=== PATIENT | female | born 1955 | race Caucasian/White ===

== ENCOUNTER 2020-06-18 13:45 | Outpatient (CLI) | payer OTHER, SELFPAY | END 2020-06-18 13:46 | disposition home or self-care (01) | LOC: ANHCOVIDVC 13:45 | PROVIDERS: PCP Family Medicine | DX: Z23 Encounter for immunization (principal) | CPT/HCPCS: 0001A; 91300 ==

== ENCOUNTER 2020-07-09 13:41 | Outpatient (CLI) | payer OTHER, SELFPAY | END 2020-07-09 13:42 | disposition home or self-care (01) | LOC: ANHCOVIDVC 13:41 | PROVIDERS: PCP Family Medicine | DX: Z23 Encounter for immunization (principal) | CPT/HCPCS: 0002A; 91300 ==

== ENCOUNTER 2021-01-22 16:45 | Emergency (ER) | payer BC, SELFPAY ==
--- NOTE | 2021-01-22 16:49 | ED.FEMALEGU ---
HPI - Female Genitourinary General Chief complaint: Urogenital-Female Stated complaint: UTI SYMPTOMS Time Seen by Provider: 01/22/21 17:20 Source: patient and RN notes reviewed Mode of arrival: ambulatory Limitations: no limitations History of Present Illness HPI Narrative: 65-year-old female presents with concern for urinary tract infection. She reports symptoms started yesterday with urinary urgency, frequency, slow urine stream. She denies abdominal pain, vomiting, nausea, back pain, fever. MD elicited complaint: UTI Related Data Allergies Allergy/AdvReac Type Severity Reaction Status Date / Time No Known Allergies Allergy Mild Verified 01/22/21 16:58 Review of Systems Review of Systems: CONSTITUTIONAL: Denies malaise, chills, sweats, or fever. CARDIOVASCULAR: Denies chest pain, palpitations, or edema. RESPIRATORY: Denies cough or dyspnea. GASTROINTESTINAL: Denies abdominal pain, nausea, vomiting, diarrhea GENITOURINARY: Reports dysuria, frequency, urgency, suprapubic pressure. Denies flank pain or hematuria. SKIN: Denies rash or itching. MUSCULOSKELETAL: Denies back pain or myalgia. All systems reviewed & are unremarkable except as noted in HPI and below PMFSH Past Medical History Medical History Cavernous hemangioma History of mitral valve prolapse Multiple sclerosis SVT (supraventricular tachycardia) Syncopal episodes Urinary incontinence Family History Family History Father Macula lutea degeneration Asthma Mother Macula lutea degeneration Cataract Social History Social History Smoking status: Former smoker (Quit 2.5 years ago) Second hand tobacco smoke exposure: No Alcohol use details: 1 glass of wine weekly. Substance use: never Substance use type: does not use Gender identity (if verbalized by the patient): Female Comments At time of signature, agree with nursing past medical, surgical, social and family history. There is no relevant family history pertinent to the presenting complaint Exam Narrative: GENERAL: Well-appearing, well-nourished, and in no acute distress. HEAD: Normocephalic. EYES: PERRLA, conjunctivae clear. NECK: Supple. No lymphadenopathy CHEST: Clear to auscultation. No respiratory distress. HEART: Regular rate and rhythm. ABDOMEN: Soft, nontender upon palpation, nondistended, normal active bowel sounds, no palpable or pulsatile masses, no guarding. No CVA tenderness SKIN: Warm, dry, no rash. NEURO: Alert and oriented x3. PSYCH: Normal mood and affect Course Course Emergency Course: Patient left in the urine for urinalysis, able to leave more urine for a culture. Patient understands that without a culture were unable to determine efficacy of antibiotics. She understands and will return to primary care doctor if her symptoms do not improve. Patient is aware of diagnosis, understands and agrees to treatment plan. Anticipatory guidance given. Patient agrees to follow-up as directed and is aware of reasons to seek care at the emergency department. Portions of this record may have been created with voice recognition software Vital Signs Vital signs: Reviewed. MDM - Female Genitourinary MDM Narrative Medical decision making narrative: Exam findings and UA show no acute concerns or changes; patient is non-toxic appearing and is in no distress. Patient is appropriate for outpatient treatment and follow-up. Lab Data Attestation: I reviewed the patient's lab results. Critical Care Time Critical Care Time Critical Care Time: No Discharge Plan Discharge Clinical Impression: Urinary tract infection Qualifiers: Urinary tract infection type: site unspecified Hematuria presence: with hematuria Qualified Code(s): N39.0 - Urinary tract infection, site not specified Patient Disposition: Home,
[2021-01-22 16:58] VITALS: BP 116/80; PULSE 93; RESP 16; TEMP 36.3; O2SAT 99
== END 2021-01-22 18:10 | disposition home or self-care (01) ==
PROVIDERS: Emergency Provider Nurse Practitioner; PCP Family Medicine
DX: N39.0 Urinary tract infection, site not specified (principal); I34.1 Nonrheumatic mitral (valve) prolapse; G35 Multiple sclerosis; Z87.891 Personal history of nicotine dependence
CPT/HCPCS: 81003; 87086; 99213; G0463

== ENCOUNTER 2021-02-10 10:23 | Emergency (ER) | payer BC, SELFPAY ==
[2021-02-10 10:26] VITALS: BP 115/81; PULSE 106; RESP 16; TEMP 36.3; O2SAT 99
--- NOTE | 2021-02-10 10:26 | ED.FEMALEGU ---
HPI - Female Genitourinary General Chief complaint: Urogenital-Female Stated complaint: UTI SYMPTOMS Time Seen by Provider: 02/10/21 10:26 Source: patient and RN notes reviewed History of Present Illness HPI Narrative: Patient is a 65-year-old female who presents the urgent care with complaints of dysuria, urinary frequency and urgency. Patient states that she was seen at our facility 2 weeks ago and placed on Bactrim for UTI. At that time patient was unable to produce enough urine for a culture. Patient states that symptoms then returned again last night. States that she did call her provider and they were unable to get her in to the office to be seen today. Patient denies of any fever, nausea, vomiting, abdominal pain, low back pain or hematuria. Patient has not taken anything for her symptoms. No other acute complaints. No acute distress noted. Patient aware of the plan of care. Some parts of this dictation were generated by voice recognition software and may contain typographical and/or grammatical inaccuracies. Related Data Allergies Allergy/AdvReac Type Severity Reaction Status Date / Time No Known Allergies Allergy Mild Verified 01/22/21 16:58 Review of Systems Review of Systems: CONSTITUTIONAL: Denies fever, chills, or sweats. EYES: Denies visual changes, redness, or discharge. ENT: Denies rhinorrhea, congestion, sore throat, or otalgia. CARDIOVASCULAR: Denies chest pain, palpitations, or edema. RESPIRATORY: Denies cough or dyspnea. GASTROINTESTINAL: Denies abdominal pain, nausea, vomiting, or diarrhea. GENITOURINARY: Reports of urgency, frequency and dysuria without hematuria SKIN: Denies rash or itching. MUSCULOSKELETAL: Denies back pain, joint pain, or myalgia. NEUROLOGIC: Denies headache, numbness, or weakness. All other systems reviewed are negative, except as documented in HPI. [facility] Past Medical History Medical History Cavernous hemangioma History of mitral valve prolapse Multiple sclerosis SVT (supraventricular tachycardia) Syncopal episodes Urinary incontinence Family History Family History Father Macula lutea degeneration Asthma Mother Macula lutea degeneration Cataract Social History Social History Smoking status: Former smoker (Quit 2.5 years ago) Second hand tobacco smoke exposure: No Alcohol use details: 1 glass of wine weekly. Substance use: never Substance use type: does not use Gender identity (if verbalized by the patient): Female Comments At the time of my signature, I reviewed and agree with the nursing past medical, surgical, social, and family history. There is no relevant family history pertinent to the patient complaint. Exam Narrative: GENERAL: This is a well-nourished, well-developed patient, in no apparent distress. HEAD: normocephalic, atraumatic. EYES: PERRL. Sclera clear/white. Vision is grossly intact. EARS: External ears normal NOSE: External nose normal with no obvious nasal discharge, nares without redness, no rhinorrhea. THROAT: Mucous membranes moist NECK: Neck supple CARDIOVASCULAR: Regular rate and rhythm without murmurs, gallops, or rubs. RESPIRATORY: Clear to auscultation. Breath sounds equal bilaterally. No wheezes, rales, or rhonchi. GASTROINTESTINAL: Abdomen soft, non-tender, nondistended. Bowel sounds are active. SKIN: warm, intact with no suspicious lesions or rash, good texture and turgor. NEURO: awake, alert, and oriented to person, place and time. There were no obvious focal neurologic abnormalities. EXTREMITIES: No clubbing, cyanosis, or edema. BACK: Negative CVA tenderness Course Vital Signs Vital signs: Vital Signs Temperature 97.3 F L 02/10/21 10:26 Pulse Rate 106 H 02/10/21 10:26 Respiratory Rate 16 02/10/21 10:26 Blood Pressure 115/81 02/10/21 10
== END 2021-02-10 10:56 | disposition home or self-care (01) ==
PROVIDERS: Emergency Provider Nurse Practitioner Family; PCP Family Medicine
DX: N39.0 Urinary tract infection, site not specified (principal); I34.1 Nonrheumatic mitral (valve) prolapse; G35 Multiple sclerosis; Z87.891 Personal history of nicotine dependence
CPT/HCPCS: 81003; 87077; 87086; 87088; 87186; 99213; G0463

== ENCOUNTER 2021-11-07 08:17 | Emergency (ER) | payer BC, SELFPAY ==
[2021-11-07 08:22] VITALS: BP 122/90; PULSE 95; RESP 16; TEMP 36.9; O2SAT 98
--- NOTE | 2021-11-07 08:36 | ED.FEMALEGU ---
HPI - Female Genitourinary General Chief complaint: Urogenital-Female Stated complaint: UTI SYMPTOMS Time Seen by Provider: 11/07/21 08:55 Source: patient and RN notes reviewed Mode of arrival: ambulatory Limitations: no limitations History of Present Illness HPI Narrative: 66-year-old female presents to concern for possible urinary tract infection. She reports overnight she began having urine frequency, burning, urgency. Reports when she urinated she did not have a large amount of urine. She denies back pain, abdominal pain, fever, body aches, chills, sweats, nausea, vomiting. MD elicited complaint: UTI Related Data Allergies Allergy/AdvReac Type Severity Reaction Status Date / Time No Known Allergies Allergy Mild Verified 08/12/21 16:17 Review of Systems Review of Systems: CONSTITUTIONAL: Denies malaise, chills, sweats, or fever. CARDIOVASCULAR: Denies chest pain, palpitations, or edema. RESPIRATORY: Denies cough or dyspnea. GASTROINTESTINAL: Denies abdominal pain, nausea, vomiting, diarrhea GENITOURINARY: Reports dysuria, frequency, urgency. Denies suprapubic pressure. Denies flank pain or hematuria. SKIN: Denies rash or itching. MUSCULOSKELETAL: Denies back pain or myalgia. All systems reviewed & are unremarkable except as noted in HPI and below PMFSH Past Medical History Medical History (Updated 11/07/21 @ 09:01 by Connie Vitale NP) Cavernous hemangioma Chronic renal insufficiency, stage III (moderate) History of mitral valve prolapse Multiple sclerosis MVP (mitral valve prolapse) Prediabetes Rosacea SVT (supraventricular tachycardia) Syncopal episodes Urinary incontinence Family History Family History Father Macula lutea degeneration Asthma Mother Macula lutea degeneration Cataract Social History Social History Second hand tobacco smoke exposure: No Smoking end date: 02/09/18 Alcohol intake: current Alcohol use details: 1 glass of wine weekly. Substance use: never Substance use type: does not use Gender identity (if verbalized by the patient): Female Comments At time of signature, agree with nursing past medical, surgical, social and family history. There is no relevant family history pertinent to the presenting complaint Exam Narrative: GENERAL: Well-appearing, well-nourished, and in no acute distress. HEAD: Normocephalic. EYES: PERRLA, conjunctivae clear. NECK: Supple. No lymphadenopathy CHEST: Clear to auscultation. No respiratory distress. HEART: Regular rate and rhythm. ABDOMEN: Soft, nontender upon palpation, nondistended, normal active bowel sounds, no palpable or pulsatile masses, no guarding. No CVA tenderness SKIN: Warm, dry, no rash. NEURO: Alert and oriented x3. PSYCH: Normal mood and affect Course Course Emergency Course: Patient is aware of diagnosis, understands and agrees to treatment plan. Anticipatory guidance given. Patient agrees to follow-up as directed and is aware of reasons to seek care at the emergency department. Portions of this record may have been created with voice recognition software Level of Care: Express Care Visit Vital Signs Vital signs: Vital Signs Temperature 98.4 F 11/07/21 08:22 Pulse Rate 95 11/07/21 08:22 Respiratory Rate 16 11/07/21 08:22 Blood Pressure 122/90 11/07/21 08:22 Pulse Oximetry 98 11/07/21 08:22 Oxygen Delivery Room Air 11/07/21 08:22 Temperature 98.4 F 11/07/21 08:22 Pulse Rate 95 11/07/21 08:22 Respiratory Rate 16 11/07/21 08:22 Blood Pressure 122/90 11/07/21 08:22 Pulse Oximetry 98 11/07/21 08:22 Oxygen Delivery Room Air 11/07/21 08:22 Reviewed. MDM - Female Genitourinary MDM Narrative Medical decision making narrative: Exam findings and UA show no acute concerns or changes; patient is non-toxic appearing and is in no distress. Patient is
== END 2021-11-07 09:08 | disposition home or self-care (01) ==
PROVIDERS: Emergency Provider Nurse Practitioner; PCP Family Medicine
DX: N39.0 Urinary tract infection, site not specified (principal); Z87.891 Personal history of nicotine dependence; I34.1 Nonrheumatic mitral (valve) prolapse; G35 Multiple sclerosis; R73.03 Prediabetes
CPT/HCPCS: 81003; 87077; 87086; 87186; 99213; G0463

== ENCOUNTER 2022-08-29 14:28 | Emergency (ER) | payer OTHER, SELFPAY ==
--- NOTE | 2022-08-29 14:30 | ED.FEMALEGU ---
HPI - Female Genitourinary General Chief complaint: Urogenital-Female Stated complaint: UTI SYMPTOMS Time Seen by Provider: 08/29/22 14:30 Source: patient and RN notes reviewed History of Present Illness HPI Narrative: Patient is a 66-year-old female presents to urgent care with complaints of possible UTI due to burning with urination suprapubic pressure. Patient denies any fever, nausea vomiting or abdominal pain. Patient states that she has not had a UTI for at least 1 year. Patient also reports of urinary urgency. No other acute complaints. No acute distress noted. Patient aware of the plan of care. Patient states symptoms started yesterday and she has not taken anything for her symptoms. Some parts of this dictation were generated by voice recognition software and may contain typographical and/or grammatical inaccuracies. Related Data Allergies Allergy/AdvReac Type Severity Reaction Status Date / Time No Known Allergies Allergy Mild Verified 08/29/22 14:34 Review of Systems Review of Systems: CONSTITUTIONAL: Denies fever, chills, or sweats. EYES: Denies visual changes, redness, or discharge. ENT: Denies rhinorrhea, congestion, sore throat, or otalgia. CARDIOVASCULAR: Denies chest pain, palpitations, or edema. RESPIRATORY: Denies cough or dyspnea. GASTROINTESTINAL: Denies abdominal pain, nausea, vomiting, or diarrhea. GENITOURINARY: Reports of dysuria suprapubic pressure SKIN: Denies rash or itching. MUSCULOSKELETAL: Denies back pain, joint pain, or myalgia. NEUROLOGIC: Denies headache, numbness, or weakness. All other systems reviewed are negative, except as documented in HPI. [facility] Past Medical History Medical History Cavernous hemangioma Chronic renal insufficiency, stage III (moderate) History of mitral valve prolapse Multiple sclerosis MVP (mitral valve prolapse) Prediabetes Rosacea SVT (supraventricular tachycardia) Syncopal episodes Urinary incontinence Family History Family History Father Macula lutea degeneration Asthma Mother Macula lutea degeneration Cataract Dementia Social History Social History Smoking status: Former smoker (1ppd since 16 yo until 62 but 0.5 ppd mostly) Second hand tobacco smoke exposure: No Smoking end date: 02/09/18 Alcohol intake: current Alcohol use details: 1 glass of wine weekly. Substance use: never Substance use type: does not use Lack of Transportation: No Lack of Food: Never True Current Housing: I Have Housing Concerned About Future Housing: No Difficulty Paying Gas/Electric Bills: No Difficulty Paying for Meds: No Currently Unemployed: No Education: High School Diploma/GED Difficulty w/ Childcare or Family Care: No Living arrangements: with family Occupation/Education: occupation Gender identity (if verbalized by the patient): Female Comments At the time of my signature, I reviewed and agree with the nursing past medical, surgical, social, and family history. There is no relevant family history pertinent to the patient complaint. Exam Narrative: GENERAL: This is a well-nourished, well-developed patient, in no apparent distress. HEAD: normocephalic, atraumatic. EYES: PERRL. Sclera clear/white. Vision is grossly intact. EARS: External ears normal, NOSE: External nose normal with no obvious nasal discharge, nares without redness, no rhinorrhea. THROAT: Mucous membranes moist NECK: Neck supple, GASTROINTESTINAL: Abdomen soft, moderate suprapubic tenderness on palpation, nondistended. Bowel sounds are active. SKIN: warm, intact with no suspicious lesions or rash, good texture and turgor. NEURO: awake, alert, and oriented to person, place and time. There were no obvious focal neurologic abnormalities. EXTREMITIES: No clubbing, cyanosis, or
[2022-08-29 14:37] VITALS: BP 111/85; PULSE 99; RESP 16; TEMP 36.2; O2SAT 99
== END 2022-08-29 15:03 | disposition home or self-care (01) ==
PROVIDERS: Emergency Provider Nurse Practitioner Family; PCP Family Medicine
DX: N39.0 Urinary tract infection, site not specified (principal); I34.1 Nonrheumatic mitral (valve) prolapse; G35 Multiple sclerosis; R73.03 Prediabetes; Z87.891 Personal history of nicotine dependence; N18.30 Chronic kidney disease, stage 3 unspecified
CPT/HCPCS: 81003; 87086; 87088; 99213; G0463

== ENCOUNTER 2022-11-07 12:21 | Emergency (ER) | payer OTHER, SELFPAY ==
--- NOTE | 2022-11-07 12:29 | ED.DIZZY ---
HPI - Dizziness General Chief Complaint: Dizziness Stated Complaint: dizzy Source: patient, family and RN notes reviewed History of Present Illness HPI Narrative: 67-year-old female presents to urgent care with at side. Patient states she had vomiting and diarrhea approximately 24 hours on where she could keep nothing down. patient states she has been dizzy ever since. The patient is also reporting left visual disturbance that started at the same time. Patient denies a fevers shortness chest pain, palpitations, shortness of breath headaches, extremity weakness falls, numbness, or tingling. Related Data Allergies Allergy/AdvReac Type Severity Reaction Status Date / Time No Known Allergies Allergy Mild Verified 11/07/22 12:46 Review of Systems Review of Systems: CONSTITUTIONAL: Denies fever, chills, or sweats. EYES: left visual disturbance ENT: Denies otalgia and sore throat CARDIOVASCULAR: Denies chest pain, palpitations, or edema. RESPIRATORY: Denies cough or dyspnea. GASTROINTESTINAL: Denies abdominal pain, nausea, vomiting, or diarrhea. GENITOURINARY: Denies dysuria or hematuria. SKIN: Denies rash or itching. MUSCULOSKELETAL: Denies back pain, joint pain, or myalgia. NEUROLOGIC: dizziness Pertinent positives per HPI. [facility] Past Medical History Medical History Cavernous hemangioma Chronic renal insufficiency, stage III (moderate) History of mitral valve prolapse Multiple sclerosis MVP (mitral valve prolapse) Prediabetes Rosacea SVT (supraventricular tachycardia) Syncopal episodes Urinary incontinence Family History Family History Father Macula lutea degeneration Asthma Mother Macula lutea degeneration Cataract Dementia Social History Social History Smoking status: Former smoker (1ppd since 16 yo until 62 but 0.5 ppd mostly) Second hand tobacco smoke exposure: No Smoking end date: 02/09/18 Alcohol intake: current Alcohol use details: 1 glass of wine weekly. Substance use: never Substance use type: does not use Lack of Transportation: No Lack of Food: Never True Current Housing: I Have Housing Concerned About Future Housing: No Difficulty Paying Gas/Electric Bills: No Difficulty Paying for Meds: No Currently Unemployed: No Education: High School Diploma/GED Difficulty w/ Childcare or Family Care: No Living arrangements: with family Occupation/Education: occupation Gender identity (if verbalized by the patient): Female Comments At the time of my signature, I reviewed and agree with the nursing past medical, surgical, social, and family history. There is no relevant family history pertinent to the patient complaint. Exam Narrative: GENERAL: This is a well-nourished, well-developed patient, in no apparent distress. HEAD: normocephalic, atraumatic. EYES: left visual disturbance EARS: External ears normal, auditory canals clear and without drainage. Hearing grossly intact. NOSE: External nose normal with no obvious nasal discharge, nares without redness, no rhinorrhea. THROAT: Mucous membranes moist, posterior pharynx clear. NECK: Neck supple, non-tender without lymphadenopathy, masses or thyromegaly. CARDIOVASCULAR: tachycardia RESPIRATORY: Clear to auscultation. Breath sounds equal bilaterally. No wheezes, rales, or rhonchi. GASTROINTESTINAL: Abdomen soft, non-tender, nondistended. Bowel sounds are active. No hepato-splenomegaly, or palpable masses. No guarding. SKIN: warm, intact with no suspicious lesions or rash, good texture and turgor. NEURO: awake, alert, and oriented to person, place and time. 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 + for ataxic gait. EXTREMITIES: No clubbing, cyanosis, or edema. No joint tenderness, effusion, or maggie
[2022-11-07 12:32] VITALS: BP 93/77; PULSE 123; RESP 16; TEMP 36.6; O2SAT 98
[2022-11-07 12:46] LABS: Glucose Point of Care 156 mg/dl (65-105)
--- NOTE | 2022-11-07 12:46 | ECG_ITS ---
Rate MN QRSd QT QTc P QRS T Severity 122 0 87 289 413 -17 -26 Abnormal ECG ATRIAL FIBRILLATION WITH RAPID VENTRICULAR RESPONSE LOW QRS VOLTAGE IN PRECORDIAL LEADS BORDERLINE T WAVE ABNORMALITY- DIFFUSE LEADS ABNORMAL ECG NO PREVIOUS ECG AVAILABLE FOR COMPARISON Electronically Signed On 11-08-2022 8:54:24 CDT by Dre PARKS
--- NOTE | 2022-11-07 13:06 | PC.NURSE ---
1240 Patient ambulated from triage to procedure room-patient reports severe dizziness, holding onto handrail, ataxic gait noted.
== END 2022-11-07 13:10 | disposition short-term general hospital (02) ==
PROVIDERS: Emergency Provider Nurse Practitioner Family; PCP Family Medicine
DX: E86.0 Dehydration (principal); N18.30 Chronic kidney disease, stage 3 unspecified; Z87.891 Personal history of nicotine dependence; I34.1 Nonrheumatic mitral (valve) prolapse; G35 Multiple sclerosis; R73.03 Prediabetes
CPT/HCPCS: 82948; 93005; 99215; G0463

== ENCOUNTER 2022-11-07 13:46 | Emergency (ER) | payer OTHER, SELFPAY ==
[2022-11-07] VITALS (30 sets, daily range): BP systolic 54–153; BP diastolic 38–118; PULSE 79–136; RESP 13–28; TEMP 36.2; O2SAT 94–100
--- NOTE | 2022-11-07 | ECG_ITS ---
Measurements Intervals [place] Rate: 109 P: IL: 0 QRS: -24 QRSD: 88 T: 3 QT: 344 QTc: 465 Interpretive Statements ATRIAL FIBRILLATION WITH RAPID VENTRICULAR RESPONSE DELAYED PRECORDIAL R/S TRANSITION LOW QRS VOLTAGE IN PRECORDIAL LEADS BORDERLINE T WAVE ABNORMALITY- ANTERIOR LEADS BASELINE ARTIFACT- I, AVR, AVL ABNORMAL ECG COMPARED TO ECG 11/07/2022 13:51:58 NO SIGNIFICANT CHANGES Electronically Signed On 11-08-2022 8:55:44 CDT by Dre Cordero D.O.
--- NOTE | ~2022-11-07 | XR_ITS ---
EXAMINATION: XR chest 2V Exam Date/Time: 11/07/2022 14:20 CDT HISTORY: New onset Afib, DIZZY Comparison: None. RESULT: Lines, tubes, and devices: None. Lungs and pleura: Clear. Cardiomediastinal silhouette: Aortic arch calcifications. Prominent pericardial fat pad. Other: No acute osseous or upper abdominal finding. IMPRESSION: No acute cardiopulmonary process. Reviewed, dictated and finalized at location K.
--- NOTE | 2022-11-07 14:06 | ED.ARRPALP ---
HPI - Arrhythmia/Palpitations General Chief Complaint: Arrhythmia/Palpitations Stated Complaint: irregular heart beat Time Seen by Provider: 11/07/22 13:47 History of Present Illness HPI narrative: This is a 67-year-old female, with past history of mitral valve prolapse, presents to the emergency department as a referral from urgent care for palpitations. The patient states 4 days ago, she had multiple episodes of nonbloody vomiting and diarrhea that resolved after that day. During that time she also had intermittent palpitations and lightheadedness with some vertigo. Despite the nausea and vomiting resolving, she continued to have lightheadedness. She denies chest pain, loss of consciousness, weakness/numbness or other complaints. Related Data Allergies Allergy/AdvReac Type Severity Reaction Status Date / Time No Known Allergies Allergy Mild Verified 11/07/22 12:46 Review of Systems Review of Systems: CONSTITUTIONAL: Denies fever, chills, or sweats. CARDIOVASCULAR: Palpitations denies chest pain, or edema. RESPIRATORY: Denies cough or dyspnea. GASTROINTESTINAL: Nausea, vomiting and diarrhea resolved denies abdominal pain GENITOURINARY: Denies dysuria or hematuria. SKIN: Denies rash or itching. MUSCULOSKELETAL: Denies back pain, joint pain, or myalgia. NEUROLOGIC: Denies headache, numbness, dizziness, or weakness. PSYCHIATRIC: Denies anxiety or depression. [facility] Past Medical History Medical History Cavernous hemangioma Chronic renal insufficiency, stage III (moderate) History of mitral valve prolapse Multiple sclerosis MVP (mitral valve prolapse) Prediabetes Rosacea SVT (supraventricular tachycardia) Syncopal episodes Urinary incontinence Family History Family History Father Macula lutea degeneration Asthma Mother Macula lutea degeneration Cataract Dementia Social History Social History Smoking status: Former smoker (1ppd since 16 yo until 62 but 0.5 ppd mostly) Second hand tobacco smoke exposure: No Smoking end date: 02/09/18 Alcohol intake: current Alcohol use details: 1 glass of wine weekly. Substance use: never Substance use type: does not use Lack of Transportation: No Lack of Food: Never True Current Housing: I Have Housing Concerned About Future Housing: No Difficulty Paying Gas/Electric Bills: No Difficulty Paying for Meds: No Currently Unemployed: No Education: High School Diploma/GED Difficulty w/ Childcare or Family Care: No Living arrangements: with family Occupation/Education: occupation Gender identity (if verbalized by the patient): Female Exam Narrative: GENERAL: Well-developed, well-nourished, and in no acute distress. HEAD: Normocephalic, atraumatic. EYES: PERRLA and EOMI. ENT: Nares clear, no rhinorrhea or epistaxis. Mucous membranes moist. NECK: Supple. No adenopathy or masses. No JVD CHEST: Clear to auscultation. No respiratory distress. No wheezes rales or rhonchi HEART: Irregularly irregular rhythm. No murmur heard. Normal peripheral pulses. ABDOMEN: Soft, nontender, nondistended, normal active bowel sounds. EXTREMITIES: Normal range of motion. No edema. SKIN: Warm, dry, no rash. NEURO: No focal deficits. Alert and oriented x3. PSYCH: Normal mood and affect. Course Course Emergency Course: 15:50 - Heart rate improved to the mid 90s with IV fluids, IV metoprolol and p.o. metoprolol. Blood pressure remains in the 130s systolic. Chest x-ray unremarkable. CBC demonstrates elevated hemoglobin of 16.8 with otherwise unremarkable CBC. Chemistry is unremarkable. Magnesium 2. Patient's [id number] score of 2. HAS-BLED score of 1. I discussed the risks versus benefits of anticoagulation and outpatient primary care and cardiology follow-up with the
[2022-11-07 14:39] LABS: Basophils Absolute Auto 0.1 K/mm3 (0.0-0.1); Basophils Percent Auto 0.6 % (0.2-1.2); Eosinophils Percent Auto 0.4 % (0-4.4); Hematocrit 51.1 % (37.0-47.0); Hemoglobin 16.8 g/dL (12.0-15.0); Immature Granulocyte Absolute 0.04 K/mm3 (0.00-0.031); Immature Granulocyte Percent A 0.5 % (0-0.5); Lymphocytes Absolute Auto 1.63 K/mm3 (0.9-3.2); Lymphocytes Percent Auto 19.3 % (18.3-44.2); Mean Corpuscular HGB Conc 32.9 g/dl (32-36); Mean Corpuscular Hemoglobin 27.9 pg (26-34); Mean Corpuscular Volume 84.9 fl (80-100); Mean Platelet Volume 11.6 fl (7.4-10.4); Monocytes Absolute Auto 0.5 K/mm3 (0.1-0.6); Monocytes Percent Auto 6.2 % (2.6-8.5); Neutrophils Absolute Auto 6.2 K/mm3 (1.3-6.7); Platelet Count Result 208 k/mm3 (150-375); Red Blood Count 6.02 M/mm3 (4.2-5.4); Red Cell Distribution Width 14.2 % (11.5-14.5); White Blood Count 8.4 K/mm3 (4.5-10.0)
[2022-11-07 14:49] LABS: Prothrombin Time 13.4 Seconds (11.1-14.7)
[2022-11-07 14:53] LABS: Alanine Aminotransferase 24 U/L (6-35); Albumin Level 4.1 g/dL (3.5-5.1); Alkaline Phosphatase 79 U/L (38-126); Anion Gap 8 mmol/L (8-16); Aspartate Amino Transferase 29 U/L (14-36); Bilirubin,Total 1.5 mg/dL (0.2-1.3); Blood Urea Nitrogen 17 mg/dL (7-17); Calcium 9.5 mg/dL (8.4-10.2); Carbon Dioxide 28 mmol/L (22-30); Chloride 105 mmol/L (98-107); Estimated CRCL calculation 75 ml/min; Estimated Glomerular Filt Rate > 60; Glucose 105 mg/dL (65-110); Potassium 3.7 mmol/L (3.4-5.0); Sodium 141 mmol/L (137-145)
[2022-11-07] MEDS: METOPROLOL TARTRATE INJ 5 MG/5 ML VIAL IV PUSH (14:55)
[2022-11-07] MEDS: SODIUM CHLORIDE 0.9% IV 2,000 ML 999 ML IV CONT (14:55)
[2022-11-07 15:05] LABS: Troponin I < 0.012 ng/mL (0.000-0.034)
--- NOTE | 2022-11-07 15:43 | ECG_ITS ---
Rate 114 MD 0 QRSd 83 QT 321 QTc 443 --Bromide-- P QRS -22 T -16 ATRIAL FIBRILLATION WITH RAPID VENTRICULAR RESPONSE LOW QRS VOLTAGE IN PRECORDIAL LEADS BORDERLINE ST-T WAVE ABNORMALITY- ANT/INF LEADS BASELINE ARTIFACT- I, II, III, AVR, AVL, AVF ABNORMAL ECG Electronically Signed On 11-08-2022 0:09:23 CDT by Dre Cordero D.O. COMPARED TO ECG 11/07/2022 12:41:23 NO SIGNIFICANT CHANGES MTDD
[2022-11-07] MEDS: METOPROLOL TARTRATE 25 MG TABLET PO (16:43)
--- NOTE | 2022-11-07 16:54 | PC.NURSE ---
pt ambulatory with assistance to bathroom. pt states vertigo is improved. pt veering left when walking. states at home she had to physically hold on to wall to walk.
[2022-11-07] MEDS: SODIUM CHLORIDE 0.9% IV 1,000 ML 999 ML IV CONT (17:02)
[2022-11-07] MEDS: APIXABAN 5 MG TABLET PO (17:02)
== END 2022-11-07 17:45 | disposition home or self-care (01) ==
PROVIDERS: Emergency Provider Preventive Medicine Aerospace Medicine; PCP Family Medicine
DX: I48.91 Unspecified atrial fibrillation (principal); I34.1 Nonrheumatic mitral (valve) prolapse; N18.30 Chronic kidney disease, stage 3 unspecified; G35 Multiple sclerosis; R73.03 Prediabetes; R32 Unspecified urinary incontinence; Z87.891 Personal history of nicotine dependence; R94.31 Abnormal electrocardiogram [ECG] [EKG]
CPT/HCPCS: 36415; 71046; 80053; 82948; 83735; 84443; 84484; 85025; 85610; 93005; 96361; 96374; 99284; A9270; J7030

== ENCOUNTER → 2022-11-15 13:15 | Outpatient (CLI) | payer OTHER, SELFPAY ==
--- NOTE | ~2022-11-15 | CT_ITS ---
EXAMINATION: CT brain wo con DATE: 11/15/2022 13:32 INDICATION: Dizziness and giddiness. TECHNIQUE: Computed tomography (CT) of the head was performed without intravenous contrast. The mA wa s adjusted according to patient size. Iterative reconstruction technique was employed. The dose-lengt h product was 599.57 mGy-cm. COMPARISON: None FINDINGS: There are scattered areas of low attenuation in the cerebral white matter. There is no intr acranial hemorrhage, acute infarction, or abnormal intracranial mass lesion. The ventricles are adolfo l in size. There is mild mucosal thickening in the paranasal sinuses. The mastoid air cells are adolfo l. The orbits are normal. IMPRESSION: 1. Moderate nonspecific cerebral white matter disease, which likely represents chronic small vessel i schemic disease. Reviewed, dictated and finalized at location A. IMPRESSION: 1. Moderate nonspecific cerebral white matter disease, which likely represents chronic small vessel ischemic disease.
== END ==
PROVIDERS: PCP Physician Assistant; Visit Provider Physician Assistant
DX: R42 Dizziness and giddiness (principal); R93.0 Abnormal findings on diagnostic imaging of skull and head, not elsewhere classified
CPT/HCPCS: 70450

== ENCOUNTER 2023-04-25 07:03 | Outpatient (CLI) | payer OTHER, SELFPAY ==
[2023-03-10 15:13] VITALS: BMI 32.0
[2023-04-22 12:29] VITALS: BMI 31.1
[2023-04-25] VITALS (12 sets, daily range): BP systolic 97–124; BP diastolic 67–90; PULSE 65–105; RESP 12–16; TEMP 35.9; O2SAT 95–100; BMI 31.2
--- NOTE | 2023-04-25 07:00 | ECG_ITS ---
Measurements Intervals [place] Rate: 65 P: 65 CA: 183 QRS: -18 QRSD: 90 T: 6 QT: 445 QTc: 463 Interpretive Statements SINUS RHYTHM BORDERLINE ST-T WAVE ABNORMALITY- ANT/INF LEADS BASELINE ARTIFACT- I, II, AVR BORDERLINE ECG COMPARED TO ECG 04/25/2023 07:42:18 SINUS RHYTHM NOW PRESENT Electronically Signed On 04-25-2023 9:34:56 [employer] by Dre Cordero D.O.
[2023-04-25 08:22] LABS: Potassium 3.9 mmol/L (3.4-5.0)
[2023-04-25 08:30] LABS: Anion Gap 8 mmol/L (8-16); Blood Urea Nitrogen 22 mg/dL (7-17); Calcium 9.1 mg/dL (8.4-10.2); Carbon Dioxide 24 mmol/L (22-30); Chloride 109 mmol/L (98-107); Estimated CRCL calculation 73 ml/min; Estimated Glomerular Filt Rate > 60; Glucose 102 mg/dL (65-110); Magnesium 2.2 mg/dL (1.6-2.3); Sodium 141 mmol/L (137-145)
--- NOTE | 2023-04-25 08:58 | PM.IMHP ---
H&P: HPI History of Present Illness Date/Time: 04/25/23 08:58 Chief Complaint: No complaints this morning Narrative: this is a 67-year-old patient admitted as an outpatient today for elective planned DC cardioversion of atrial fibrillation. The patient was seen in my office for follow-up of atrial fibrillation in February of 2023. She was seen initially in consultation in January of 2023 for atrial fibrillation. She was 1st told of this back in 2017 by her previous physician. She was treated with metoprolol and did well. She subsequently was treated for a diarrheal illness in the summer. At that time she was found to be in persistent atrial fibrillation but appeared to be asymptomatic and unaware of her arrhythmia. She was seen in consultation. She was anticoagulated at that time. Echocardiogram was done in February demonstrating normal or low normal left ventricular systolic function with an ejection fraction of 50% with moderate biatrial dilatation and modest mitral and tricuspid valve insufficiency. After being seen in the office after a suitable period of anticoagulation rate control versus rhythm control were discussed. It is her preference to attempt restoring sinus rhythm. She has been started on sotalol for anti arrhythmic benefit. She continues to be anticoagulated with apixaban Review of Systems Constitutional: Constitutional: Reports no additional constitutional complaints Eyes: Eyes: Reports no additional eye complaints ENT: Reports system reviewed and no additional complaints, except as documented Cardiovascular: Cardiovascular: Reports no additional cardiovascular complaints Respiratory: Respiratory: Reports no additional respiratory complaints Gastrointestinal: Gastrointestinal: Reports no additional gastrointestinal complaints Musculoskeletal: Musculoskeletal: Reports no additional musculoskeletal complaints Integumentary/Breasts: Skin/Breast: Reports system reviewed and no additional complaints, except as docu Neurologic: Reports system reviewed and no additional complaints, except as documented [facility] Past Medical History Medical History (Updated 11/11/22 @ 14:44 by Annie Nova PA-C) Cavernous hemangioma Chronic renal insufficiency, stage III (moderate) History of mitral valve prolapse Multiple sclerosis MVP (mitral valve prolapse) Paroxysmal A-fib Prediabetes Rosacea SVT (supraventricular tachycardia) Syncopal episodes Urinary incontinence Family History Family History Father Macula lutea degeneration Asthma Mother Macula lutea degeneration Cataract Dementia Social History Social History (Updated 11/11/22 @ 13:21 by Ashley Khan MA) Smoking packs per day: 1 Smoking cigarettes per day: 20.0 Smoking status: Former smoker Tobacco type: cigarettes Second hand tobacco smoke exposure: No Smoking end date: 02/09/18 Additional smoking assessment comments: 1 ppd since 16 yo until 62 but 0.5 ppd mostly Alcohol intake: current Alcohol use details: approximately once every 2 weeks Substance use: never Substance use type: does not use Last use: 02/09/2018 Lack of Transportation: No Lack of Food: Never True Current Housing: I Have Housing Concerned About Future Housing: No Difficulty Paying Gas/Electric Bills: No Difficulty Paying for Meds: No Currently Unemployed: No Education: High School Diploma/GED Difficulty w/ Childcare or Family Care: No Living arrangements: with family Occupation/Education: occupation Gender identity (if verbalized by the patient): Female Spiritual care concerns: No Agree to blood products: Yes Meds Home Medications and Allergies Home Medications Medication Instructions Recorded Confirmed Type apixaban 5 mg tablet (Eliquis) 5 mg PO BID #60 tabs 02/07/23 03/10/23 Rx sotalol 80 mg tablet 80 mg PO BID
--- NOTE | 2023-04-25 09:00 | ECG_ITS ---
Measurements Intervals [place] Rate: 97 P: [place]: 0 QRS: -13 QRSD: 86 T: 25 QT: 361 QTc: 460 Interpretive Statements ATRIAL FIBRILLATION LOW QRS VOLTAGE IN PRECORDIAL LEADS BORDERLINE T WAVE ABNORMALITY- ANT/INF LEADS BASELINE ARTIFACT- I, II, AVR ABNORMAL ECG COMPARED TO ECG 11/07/2022 16:25:38 HEART RATE HAS DECREASED Electronically Signed On 04-25-2023 7:59:47 [employer] by Dre Cordero D.O.
--- NOTE | 2023-04-25 09:01 | WPDMODSED ---
Moderate Sedation Note-Pt Data Patient Data Diagnosis: persistent atrial fibrillation Present Complaint: no complaints Procedure to be performed/Plan: DC cardioversion Allergies Allergy/AdvReac Type Severity Reaction Status Date / Time No Known Allergies Allergy Mild Verified 04/25/23 07:47 Home Medications Medication Instructions Recorded Confirmed Type apixaban 5 mg tablet (Eliquis) 5 mg PO BID #60 tabs 02/07/23 03/10/23 Rx sotalol 80 mg tablet 80 mg PO BID 03/10/23 03/10/23 History Current Medications: Active Medications Sodium Chloride (Normal Saline Iv) 1,000 mls @ 30 mls/hr IV CONT .Q24H OSBALDO Sedation/Anesthesia: No previous sedation/anesthesia problems (including family history). [facility] Past Medical History Medical History (Updated 11/11/22 @ 14:44 by Annie Nova PA-C) Cavernous hemangioma Chronic renal insufficiency, stage III (moderate) History of mitral valve prolapse Multiple sclerosis MVP (mitral valve prolapse) Paroxysmal A-fib Prediabetes Rosacea SVT (supraventricular tachycardia) Syncopal episodes Urinary incontinence Family History Family History Father Macula lutea degeneration Asthma Mother Macula lutea degeneration Cataract Dementia Social History Social History (Updated 11/11/22 @ 13:21 by Ashley Khan MA) Smoking packs per day: 1 Smoking cigarettes per day: 20.0 Smoking status: Former smoker Tobacco type: cigarettes Second hand tobacco smoke exposure: No Smoking end date: 02/09/18 Additional smoking assessment comments: 1 ppd since 16 yo until 62 but 0.5 ppd mostly Alcohol intake: current Alcohol use details: approximately once every 2 weeks Substance use: never Substance use type: does not use Last use: 02/09/2018 Lack of Transportation: No Lack of Food: Never True Current Housing: I Have Housing Concerned About Future Housing: No Difficulty Paying Gas/Electric Bills: No Difficulty Paying for Meds: No Currently Unemployed: No Education: High School Diploma/GED Difficulty w/ Childcare or Family Care: No Living arrangements: with family Occupation/Education: occupation Gender identity (if verbalized by the patient): Female Spiritual care concerns: No Agree to blood products: Yes Mod Sed Physical Exam Physical Exam Pre Procedural Exam: Normal: Airway, Lungs, Heart Size, Neuro Exam and Extremities and Variation: Appearance ( overweight white female no distress), Heart Rate and Heart Rhythm ( irregularly irregular) Hours since solid foods: 12 Hours since liquid intake: 12 Mallampati Classification: class II Internal Medicine - PN: Obj Da Vital Signs Vital Signs: Vital Signs - 24 hr 04/25/23 07:50 04/25/23 08:30 Temperature 35.9 C L Pulse Rate 82 88 Respiratory Rate 14 15 Blood Pressure 115/77 119/83 Pulse Oximetry 96 96 Oxygen Delivery Room Air Room Air Meds/Results Medications: Active Medications Generic Name Dose Route Start Last Admin Trade Name Freq PRN Reason Stop Dose Admin Sodium Chloride 1,000 mls @ 30 mls/hr 04/25/23 07:00 Normal Saline Iv IV CONT .Q24H OSBALDO Labs 04/25/23 07:45 Labs: Laboratory Results - last 24 hr 04/25/23 07:45 Sodium 141 Potassium 3.9 Chloride 109 H Carbon Dioxide 24 Anion Gap 8 BUN 22 H Creatinine 0.80 Estim Creat Clear Calc 73 Estimated GFR > 60 Glucose 102 Calcium 9.1 Magnesium 2.2 ASA Classification/Sedation ASA Classification/Sedation ASA Class: II Emergent: No Risks: Risks, benefits and alternatives explained and patient/family accepted plan for sedation. Patient re-evaluated immediately prior to sedation.
--- NOTE | 2023-04-25 09:11 | P.PCNCC_ITS ---
Cardiac Cath Procedure Note Date of procedure:: 04/25/23 Performing physician:: Claudio Mejias MD Indication:: persistent atrial fibrillation Brief clinical history:: this is a 67-year-old lady with a history of atrial fibrillation which has been persistent now for approximately 2-3 months at least. An attempt at restoring sinus rhythm has been scheduled for this morning. She has been treated with api xaban and sotalol. Procedure Procedure performed:: DC cardioversion Sedation/Medication given:: intravenous propofol total dosage of 70 mg Estimated blood loss:: 0 Procedure note:: patient was brought to the cardiac catheterization lab in the postabsorptive state defibrillator patches were placed in the AP position and IV access was in the right upper extremity. She was then sedated with aliquots of propofol a total dose of 70 mg provided excellent sedation she was then counter shocked with 200 joules x1 attempt restoring normal sinus rhythm with heart rate in the 60s. Findings:: As above Conclusion:: successful uncomplicated DC cardioversion terminating atrial fi brillation/restoring sinus rhythm using 200 joules x1 shock Claudio Mejias MD [facility]
== END 2023-04-25 10:30 | disposition home or self-care (01) ==
PROVIDERS: PCP Family Medicine; Visit Provider Specialist
PROC: 5A2204Z Restoration of Cardiac Rhythm, Single (ICD-10-PCS; principal; 2023-04-25 08:30)
DX: I48.91 Unspecified atrial fibrillation (principal)
CPT/HCPCS: 36415; 80048; 83735; 92960; J2704; J7030

== ENCOUNTER 2023-11-04 14:13 | Outpatient (CLI) | payer OTHER, SELFPAY ==
--- NOTE | ~2023-11-04 | US_ITS ---
US arterial ankle brachial ind INDICATION: Claudication. Tingling and numbness with pain in the lower extremities. TECHNIQUE: Segmental pressures and plethysmographic and Doppler waveforms of the brachial and lower e xtremity arteries were obtained. COMPARISON: None. FINDINGS: Right and left brachial artery pressures of 122 mm Hg and 124 mm Hg, respectively, are concordant (no rmal difference <= 30 mmHg). The right ankle-brachial index (JOLIE) is 1.02 (normal >= 0.9-1.0). The right great toe-brachial index (TBI) is 0.65 (normal >= 0.60). The left JOLIE is 1.0. The left TBI is 0.5. IMPRESSION: 1. Mildly decreased left toe brachial index, consistent with peripheral arterial disease. 2: Normal ankle-brachial indices. Reviewed, dictated and finalized at location B. IMPRESSION: 1. Mildly decreased left toe brachial index, consistent with peripheral arteria l disease. 2: Normal ankle-brachial indices.
== END 2023-11-04 14:14 | disposition home or self-care (01) ==
PROVIDERS: PCP Family Medicine; Visit Provider Family Medicine
DX: I73.9 Peripheral vascular disease, unspecified (principal); M79.604 Pain in right leg; M79.605 Pain in left leg
CPT/HCPCS: 93922